=== PATIENT | female | born 1985 | race Caucasian/White ===

== ENCOUNTER 2018-02-23 16:54 | Emergency (ER) | payer OTHER ==
[~2018-02-23] VITALS: Ht 167.6 cm; Wt 94.3 kg
--- NOTE | 2018-02-23 17:41 | Emergency Room Report ---
History of Present Illness General Chief Complaint: Multiple Trauma/Fall Source: Patient Present Illness HPI 32-year-old female presents to the emergency department complaining of 8 out of 10 in severity into the lower back as well as the right knee status post mechanical slip and fall on wet tile while at work earlier today. Patient reports that she also has some pain to the right side of her neck as well. Patient denies hitting her head she denies loss of consciousness and she denies previous injury to this extremity. Patient reports pain is increased upon standing or walking and relieved with rest. Patient states that her pain does not completely relieve though. Patient reports pain is primarily localized to the medial aspect of the right anterior knee palpation also lacerates her pain. Denies numbness tingling or loss of sensation or gross motor movements of the extremities, incontinence of bowel or bladder. Denies CP, Palpitations, LOC, AMS , dizziness, Changes in Vision, weakness or a sudden severe headache. Allergies: Coded Allergies: No Known Allergies (Unverified , 02/23/18) Patient History Past Medical History: see triage record Past Surgical History: none Pertinent Family History: none Last Menstrual Period: 3 weeks ago Reviewed Nursing Documentation: PMH: Agreed; PSxH: Agreed Nursing Documentation-PMH Past Medical History: No Stated History Review of Systems All Other Systems: negative except mentioned in HPI Physical Exam Vital Signs Date Time Temp Pulse Resp B/P (MAP) Pulse Ox O2 Delivery O2 Flow Rate FiO2 02/23/18 17:11 98.1 76 16 120/81 96 Room Air Sp02 EP Interpretation: reviewed, normal General Appearance: no apparent distress, alert, GCS 15, non-toxic, moderate distress Head: normocephalic, atraumatic Eyes: bilateral eye normal inspection, bilateral eye PERRL ENT: hearing grossly normal, normal voice Neck: full range of motion, tender lateral - right lateral ttp, tender midline - FROM Respiratory: lungs clear, normal breath sounds, speaking full sentences Cardiovascular #1: regular rate, rhythm Gastrointestinal: non tender, soft Genitourinary: normal inspection, no CVA tenderness Musculoskeletal: back normal, gait/station normal - compensated but able to bear weight/limp, normal range of motion, tender - TTP to the midline spinous process and paraspinal muscles of the lumbar spine, and the cervical spine. pt. has FROM. Pt. has medial anteiror ttp to the right knee, some mild swelling, no obvious deformity or increased laxity on exam. pt. is NVI Neurologic: alert, oriented x3, responsive, motor strength/tone normal, sensory intact, speech normal, grossly normal Psychiatric: judgement/insight normal Skin: normal color, no rash, warm/dry, well hydrated, other Medical Decision Making THOR Attestation Dr. Lynch is my supervising physician whom pt. management has been discussed with. Diagnostic Impression: Primary Impression: Contusion of knee, right Qualified Codes: S80.01XA - Contusion of right knee, initial encounter Additional Impressions: Right knee sprain Qualified Codes: S83.91XA - Sprain of unspecified site of right knee, initial encounter Muscle spasm Back contusion Qualified Codes: S20.221A - Contusion of right back wall of thorax, initial encounter Neck sprain Qualified Codes: S13.9XXA - Sprain of joints and ligaments of unspecified parts of neck, initial encounter ER Course 32-year-old female presents to the emergency department complaining of 8 out of 10 in severity into the lower back as well as the right knee status post mechanical slip and fall on wet tile while at work earlier today. Patient reports that she also has some pain to the right side of her neck as well. Patient denies hitting her head she denies loss of consciousness and she denies previous injury to this extremity. Patient reports pain is increased upon standing or walking and relieved with rest. Patient states that her pain does not completely relieve though. Patient reports pain is primarily localized to the medial aspect of the right anterior knee palpation also lacerates her pain. Denies numbness tingling or loss of sensation or gross motor movements of the extremities, incontinence of bowel or bladder. Denies CP, Palpitations, LOC, AMS , dizziness, Changes in Vision, weakness or a sudden severe headache. Ddx considered but are not limited to Fracture, dislocation, contusion, Sprain/ Strain/Spasm, Epidural abscess, Neoplastic mets. Vital signs: are WNL, pt. is afebrile H&PE are most consistent with musculoskeletal injury will perform imaging to r/ o fractures/dislocations. ORDERS: - X-ray 's of the Right knee, C-Spine and L-Spine - negative for fx, Dislocation, or significant soft tissue injury, per preliminary read in ED, and signed by THOR Viramontes, my supervising physician has reviewed, and agrees with my interpretation. ED INTERVENTIONS: - [place] PO DISCHARGE: At this time pt. is stable for d/c to home. Will provide printed patient care instructions, and any necessary prescriptions. Care plan and follow up instructions have been discussed with the patient prior to discharge. Other X-Ray Diagnostic Results Other X-Ray Diagnostic Results #1: X-Ray ordered: C-Spine # of Views/Limited Vs Complete: 3 View Indication: Pain EP Interpretation: Yes PA Xray: Interpretation reviewed, by supervising MD, and agrees with findings. Interpretation: no dislocation, no soft tissue swelling, no fractures, other - cervical loridosis straightening. Impression: Other - abnormal - consistent with spasm Electronically Signed by: Yanira Viramontes PA-C Other X-Ray Diagnostic Results #2: X-Ray ordered: L-SPine # of Views/Limited Vs Complete: 3 View Indication: Pain EP Interpretation: Yes PA Xray: Interpretation reviewed, by supervising MD, and agrees with findings. Interpretation: no dislocation, no soft tissue swelling, no fractures Impression: No acute disease Electronically Signed by: Yanira Viramontes PA-C Other X-Ray Diagnostic Results #3: X-Ray ordered: Right knee # of Views/Limited Vs Complete: 3 View Indication: Pain EP Interpretation: Yes PA Xray: Interpretation reviewed, by supervising MD, and agrees with findings. Interpretation: no dislocation, no soft tissue swelling, no fractures Impression: No acute disease Electronically Signed by: Yanira Viramontes PA-C Last Vital Signs Date Time Temp Pulse Resp B/P (MAP) Pulse Ox O2 Delivery O2 Flow Rate FiO2 02/23/18 17:11 98.1 76 16 120/81 96 Room Air Disposition: HOME, SELF-CARE Condition: Stable Scripts Acetaminophen* (TYLENOL EXTRA STRENGTH*) 500 Mg Tablet 500 MG ORAL Q6H, #30 TAB 0 Refills Prov: Yanira Viramontes 02/23/18 Methocarbamol* (ROBAXIN-750*) 750 Mg Tablet 750 MG PO QID, #28 TAB 0 Refills Prov: Yanira Viramontes 02/23/18 Departure Forms: Return to Work Return to Work Date: Feb 26, 2018 Work Restrictions: No Heavy Lifting, No Prolonged Standing Other Restrictions: May return Sooner if Symptoms have resolved. Return to Full Activity: Mar 05, 2018 Patient Instructions: Contusion, [id number], Knee Sprain, [id number], Muscle Strain, [id number] Additional Instructions: Take medications as directed. Follow up with a Primary Care Provider in 3-5 days, even if your symptoms have resolved. --Please review list of primary care clinics, if you do not already have a primary care provider Return sooner to ED if new symptoms occur, or current symptoms become worse. Do not drink alcohol, drive, or operate heavy machinery while taking Robaxin ( Muscle Relaxers) as this may cause drowsiness. - Please note that this Emergency Department Report was dictated using [employer] technology software, occasionally this can lead to erroneous entry secondary to interpretation by the dictation equipment. Yanira Viramontes Feb 23, 2018 17:41
[2018-02-23] MEDS ORDERED: Norco 5mg/325mg tab ORAL ONE (17:45)
[2018-02-23] MEDS ORDERED: Ketorolac 30mg Inj IM ONE (17:45)
[2018-02-23 18:15] VITALS: BP 120/81
[2018-02-23] MEDS ORDERED: ROBAXIN-750750 MG PO (19:21)
[2018-02-23] MEDS ORDERED: TYLENOL EXTRA500 MG ORAL (19:21)
[2018-02-23 19:36] VITALS: BP 120/81
--- NOTE | 2018-02-24 09:50 | Diagnostic Imaging Report ---
Indication: Pain, status post fall Technique: 3 views of the cervical spine Comparison: none Findings: There is straightening of the normal cervical lordosis. No prevertebral soft tissue swelling. No acute fractures. No dislocations. Vertebral body heights are preserved. The disc spaces are preserved. Impression: Negative
--- NOTE | 2018-02-24 09:55 | Diagnostic Imaging Report ---
Indication: Pain, status post fall Technique: 3 views of the right knee Comparison: None Findings: No suprapatellar effusion. No acute fractures. No dislocations. The joint spaces are preserved Impression: Negative
--- NOTE | 2018-02-24 09:56 | Diagnostic Imaging Report ---
Indication: Pain status post fall Technique: 3 views of the lumbar spine Comparison: None Findings: Vertebral body heights are preserved. The disc spaces are preserved. No acute fractures. No dislocations. Intrauterine device is incidentally noted. Impression: Negative
== END 2018-02-23 19:20 | disposition home or self-care (01) ==
LOC: EDBD 16:54 → EMR 17:30
DX: S30.0XXA Contusion of lower back and pelvis, initial encounter (principal); S83.91XA Sprain of unspecified site of right knee, initial encounter; S13.9XXA Sprain of joints and ligaments of unspecified parts of neck, initial encounter; W01.0XXA Fall on same level from slipping, tripping and stumbling without subsequent striking against object, initial encounter; Y92.89 Other specified places as the place of occurrence of the external cause; M62.838 Other muscle spasm
CPT/HCPCS: 72020; 72040; 73562; 96372; 99284; J1885